=== PATIENT | female | born 1990 | race Caucasian/White ===

== ENCOUNTER 2025-01-02 03:55 | Emergency (ER) | payer OTHER, SELFPAY ==
[2025-01-02 03:59] VITALS: BP 146/89; PULSE 112; RESP 18; TEMP 37; O2SAT 100
--- NOTE | 2025-01-02 04:00 | DI.CT_ITS ---
Exam(s) CT HEAD WO EXAM: CT HEAD WO CLINICAL HISTORY: Trauma, hit font of head, hematomma. TECHNIQUE: Imaging Protocol: Axial computed tomography images with coronal and sagittal reformatted images were created and reviewed COMPARISON: No exams were available for comparison FINDINGS: Ventricles and Extra axial spaces: Normal in size and morphology for the patient's age. Hemorrhage: None. Cerebral parenchyma: Normal. Midline shift: None. Brainstem/Cerebellum: Normal. Calvarium: Normal. Visualized Paranasal sinuses/Mastoids: Clear. Soft Tissues: There is mild soft tissue swelling over the right frontal bone. IMPRESSION: 1. No acute intracranial process. 2. The preliminary [facility] report was reviewed. RADIATION DOSE DELIVERED: 1,730.27mGy.cm Total DLP DATA REPOSITORY: All CT scans at this facility are submitted to the National Radiology Data Registry (NRDR) Dose Index Registry (DIR) with the [employer] ([employer]). RADIATION OPTIMIZATION: All CT scans at this facility use at least one of these dose optimization techniques: automated exposure control; mA and/or kV adjustment per patient size (includes targeted exams where dose is matched to clinical indication); or iterative reconstruction.
[2025-01-02] MEDS: Ondansetron O.D.T. 4 MG TABEF PO (04:21)
[2025-01-02] MEDS: Acetaminophen 500 MG TAB 1000 MG PO (04:22)
[2025-01-02] MEDS: Ibuprofen 800 MG TAB PO (04:22)
--- NOTE | 2025-01-02 04:28 | ED.GENADUL_ITS ---
Discharge Plan Disposition Patient Disposition: Home Condition: Good Discharge Details Clinical Impression: Concussion, Contusion of forehead ED Provider: Dashawn Kay Home Meds and New Rx's Prescriptions: No Action sertraline 50 mg tablet 50 mg PO DAILY methylphenidate HCl [Ritalin] 20 mg tablet 20 mg PO TID hydroxyzine HCl 25 mg tablet 25 mg PO TID PRN Discharge Instructions Instructions: Concussion in adults Additional Instructions: At this time your CAT scan shows no evidence of bleed, fracture or other life- threatening abnormality. You do have a notable contusion and hematoma on your forehead. Please ice this frequently. Use ice for the next 12 to 24 hours. You can then transition to heat to help for the reabsorption of the hematoma. In addition to this, I suspect you have a mild to moderate concussion. If you have any worsening of your symptoms please return immediately. Please be very cognizant of any evidence of worsening headache, vomiting, weakness, numbness, dizziness, decreased concentration, memory problems, sleep disturbance, irritability, fatigue, visual disturbances, judgment problems, depression, or anxiety. These may represent a worsening of your condition or a different, or worse pathology. Please either return immediately for reevaluation or follow up with your primary care provider immediately for continued assessment, reassessment, and management. Please avoid any contact sports, or activities which could cause jarring of your head. A second repeat injury can cause significant and permanent brain damage. After you have complete resolution of any of the symptoms noted above please wait one COMPLETE week until you resume normal gentle physical activity. If you have any return of the symptoms after this, please again wait 1 week after you have complete resolution of your symptoms to return to gentle and normal activities. If you notice any worsening of your symptoms, or any new symptoms such as vomiting, diarrhea, fever, chills, shortness of breath, chest pain, numbness, weakness, or fainting , please return immediately to the emergency department for reevaluation. Please follow up with your primary care provider as soon as possible for reassessment and reevaluation. As always, it was a pleasure participating in your medical care today. Stand Alone Forms: Work Release HPI General Date/Time Provider Initiated Documentation: 01/02/25 04:14 . HPI Narrative: This is a 34-year-old female with no significant past medical history who presents today for evaluation after hitting her head. Patient states that she got little drunk tonight, and was giving her friend a piggyback ride when he tripped and fell forward and she hit her forehead on the ground. She did not lose consciousness. She was not able to break her fall. She denies any vision changes, numbness or tingling, or atypical weakness. She does admit to mild headache, but denies any neck pain chest. Pain or other complaints. No other modifying factors. She is not on any blood thinners. Tetanus was last updated 5 years ago. Related Data Home Medications ?Medication ?Instructions ?Recorded ?Confirmed hydroxyzine HCl 25 mg tablet 25 mg PO TID PRN 01/02/25 01/02/25 methylphenidate HCl 20 mg tablet 20 mg PO TID 01/02/25 01/02/25 (Ritalin) sertraline 50 mg tablet 50 mg PO DAILY 01/02/2511/21 Allergies Allergy/AdvReac Type Severity Reaction Status Date / Time acetaminophen (From Vicodin) AdvReac vomiting Verified 01/02/25 04:15 hydrocodone (From Vicodin) AdvReac vomiting Verified 01/02/25 04:15 latex AdvReac Skin Rash Verified 01/02/25 04:15 prochlorperazine (From AdvReac Other (See Verified 01/02/25 04:15 Compazine) Comment) General Stated Complaint: Fall/Non TraumaCriteria LEO: 3 Exam Narrative Exam Narrative: 1.Const: Well-nourished, Well-developed, appearing stated age 2.Eyes: PERRL, no conjunctival injection, and symmetrical lids. 3.ENT: Atraumatic external nose and ears. Moist MM. Neck: Symmetric, trachea midline, No thyromegaly. There is no evidence of raccoon eyes, veliz sign, CSF rhinorrhea, mastoid tenderness, cranial crepitus, hemotympanum, exophthalmos, or hyphema. Patient demonstrates intact dentition with no signs of tooth avulsion or fracture, no signs of jaw deformity, no evidence of a LeFort's fracture, with an intact palate, nose and orbital region. There is no evidence of a nasal septal hematoma. No proptosis. Jaw closes symmetrically. Airway is clear. Patient does have notable contusion over the right frontal forehead, but no bony depressions or episodes of fracture. 4.CVS: +S1/S2, Peripheral pulses 2+ and equal in all extremities. Brisk capillary refill in all extremities. 5.RESP: Unlabored respiratory effort. Clear to auscultation bilaterally. No wheezes rales or rhonchi 6.GI: Soft, Nontender/Nondistended, No hepatosplenomegaly. No guarding or rebou nd. 7.MSK: Normocephalic/Atraumatic, Extremities w/o deformity or ttp No cyanosis or clubbing, Normal movement of all extremities 8.Skin: Warm, Dry. No rashes or lesions. 9.Neuro: surface grinding machine hand II-XII grossly intact. Sensation grossly intact, no focal neurologic deficits. All 6 cardinal planes of vision are fully intact. No evidence of rotatory or vertical nystagmus. The patient demonstrated a normal [id number]-[id number], good dexterity. There was no evidence of dysdiadochokinesia. Patient was able to ambulate without difficulty. There was no wide-based gait. Romberg testing was normal. Rfns-ml-mdjd testing was normal. Sensation was intact bilaterally as well as muscle strength bilaterally for all extremities. Patient was able to verbalize butter cup with no slurring, or miss pronunciation. 10.Psych: (AAO) x3. Appropriate mood and affect Course Vital Signs Vital signs: Vital Signs Temperature 37.0 C 01/02/25 03:59 Pulse 112 H 01/02/25 03:59 Respiratory Rate 18 01/02/25 03:59 Blood Pressure 146/89 H 01/02/25 03:59 Pulse Oximetry 100 01/02/25 03:59 Temperature 37.0 C 01/02/25 03:59 Temperature Source Oral 01/02/25 03:59 Pulse 112 H 01/02/25 03:59 Respiratory Rate 18 01/02/25 03:59 Respiratory Effort Normal 01/02/25 04:08 Respiratory Depth Normal 01/02/25 04:08 Respiratory Pattern Normal 01/02/25 04:08 Blood Pressure 146/89 H 01/02/25 03:59 Blood Pressure Position Sitting 01/02/25 03:59 Pulse Oximetry 100 01/02/25 03:59 Oxygen Delivery Method Room Air 01/02/25 03:59 Oxygen Flow Rate 0 01/02/25 03:59 Pain Level 3 01/02/25 04:22 Medical Decision Making This is a 34-year-old female with no significant past medical history who presents today for evaluation after hitting her head. Patient states that she got little drunk tonight, and was giving her friend a piggyback ride when he tripped and fell forward and she hit her forehead on the ground. She did not lose consciousness. She was not able to break her fall. She denies any vision changes, numbness or tingling, or atypical weakness. She does admit to mild headache, but denies any neck pain chest. Pain or other complaints. No other modifying factors. She is not on any blood thinners. Tetanus was last updated 5 years ago. Exam demonstrates well-appearing female, notable contusion to the right frontal forehead. No active bleeding or laceration. No hemotympanums, nystagmus, hyphema or other abnormalities. Patient's neurologic assessment is normal. She does appear mildly intoxicated which correlates with consumed alcohol this evening. Differential is highest for concussion and contusion, but also includes less likely diagnoses of subdural, epidural or intraparenchymal hemorrhage. Cranial fracture less likely but on the differential. Will get CT imaging secondary to the intoxicated component, and the nature of the fall. Will monitor closely and reassess. Will give Tylenol Motrin and Zofran for pain and nausea control. 4:55 AM Patient remained stable neurologically during observation period here. She feels well. She is tolerating p.o. No vomiting. CT scan of the head negative for acute process. Patient stable for discharge. Patient will be going home with nonintoxicated female friend. Discussed red flags for which to return. Discussed symptoms which to be aware of with her concussion. I have extensively reviewed the treatment plan and discharge instructions with the patient. I have addressed all patient concerns at this time. The patient was made aware of what symptoms to monitor for that would warrant a return to the emergency department. Discussed the plan with the patient, they demonstrate verbal understanding and agreement with our assessment and plan at this time. The documentation in this chart was dictated using [employer] dictation software. Please excuse any dictation errors. FINDINGS: Brain: Minimal atrophy. No intracranial hemorrhage. No mass. No edema. Cerebral ventricles: No hydrocephalus. Paranasal sinuses: No acute sinusitis. Mastoid air cells: No significant effusion. Orbital cavities: Unremarkable as visualized. Bones: No acute fracture. Soft tissues: Frontal soft tissue swelling. IMPRESSION: No intracranial hemorrhage. Thank you for allowing us to participate in the care of your patient. Dictated and Authenticated by: Conrad Pretty MD 01/02/2025 4:42 AM Eastern Time ([place] & [place]) [facility] All Active Problems (Updated 01/02/25 @ 04:33 by Dashawn Kay DO) Contusion of forehead (Acute) Concussion (Acute) Social History Smoking/Tobacco Use Status: Never Smoking risk assessment performed?: Yes Alcohol Intake: current Alcohol Intake frequency: a few times a week Drug use: Never Substance use type: does not use Do you feel safe at home: Yes Do you feel safe in your relationship?: Yes PAWSS Have you Been Recently Intoxicated or Drunk Within the Last 30 days?: Yes Have you Ever Experienced Previous Episodes of Alcohol Withdrawal?: No Have you ever Experienced Withdrawal Seizures?: No Have you ever Experienced Delirium Tremens(DT)s?: No Have you ever undergone Alcohol Rehabilitation Treatment (i.e, inpt ot outpatient treatment programs)?: No Have you ever Experienced Blackouts?: No Have you ever Combined Alcohol with other Downers within the last 90 days?: No Have you ever Combined Alcohol with any other Substance of Abuse during the last 90 days?: No Positive Blood Alcohol level on Presentation? [PCS.BAL]: No Evidence of Increased Autonomic Activity (i.e. HR>120, tremor, sweating, agitation, nausea)?: No Result: 1
--- NOTE | 2025-01-02 04:42 | DI.[facility]_ITS ---
PROCEDURE INFORMATION: Exam: CT Head Without Contrast Exam date and time: 01/02/2025 4:28 AM Age: 34 years old Clinical indication: Dizziness and other: Trauma, hit font of head, hematomma TECHNIQUE: Imaging protocol: Computed tomography of the head without contrast. COMPARISON: No relevant prior studies available. FINDINGS: Brain: Minimal atrophy. No intracranial hemorrhage. No mass. No edema. Cerebral ventricles: No hydrocephalus. Paranasal sinuses: No acute sinusitis. Mastoid air cells: No significant effusion. Orbital cavities: Unremarkable as visualized. Bones: No acute fracture. Soft tissues: Frontal soft tissue swelling. IMPRESSION: No intracranial hemorrhage. Dictated and Authenticated by: Conrad Pretty MD. Orderin Eliza Tamez MD
== END 2025-01-02 04:57 | disposition home or self-care (01) ==
LOC: ER 05:22
PROVIDERS: Emergency Provider Student in an Organized Health Care Education/Training Program; PCP Family Medicine
DX: S00.83XA Contusion of other part of head, initial encounter (principal); S06.0XAA Concussion with loss of consciousness status unknown, initial encounter; W01.0XXA Fall on same level from slipping, tripping and stumbling without subsequent striking against object, initial encounter
CPT/HCPCS: 99283; 99284; 70450